=== PATIENT | female | born 1975 | race Caucasian/White ===

== ENCOUNTER → 2017-06-05 | Outpatient (CLI) | payer BC ==
[2017-06-05 13:30] LABS: CHOLESTEROL/HDL RATIO 2.4
== END | disposition home or self-care (01) ==
LOC: C.LABMFLN 08:22
PROVIDERS: ATTEND Family Medicine
DX: Z13.1 Encounter for screening for diabetes mellitus (principal); Z13.220 Encounter for screening for lipoid disorders

== ENCOUNTER → 2017-07-27 | Outpatient (CLI) | payer BC | END | disposition home or self-care (01) | LOC: C.PAPS 10:30 | PROVIDERS: ATTEND Obstetrics & Gynecology | DX: Z01.419 Encounter for gynecological examination (general) (routine) without abnormal findings (principal) ==

== ENCOUNTER → 2017-10-02 | Outpatient (CLI) | payer BC ==
--- NOTE | 2017-10-03 07:50 | MAMMOGRAPHY REPORT ---
THIS REPORT HAS BEEN AMENDED. BILATERAL DIGITAL SCREENING MAMMOGRAM TOMOSYNTHESIS WITH CAD: 10/02/2017 CLINICAL HISTORY: Routine screening. Patient has no complaints. TECHNIQUE: Breast tomosynthesis in addition to standard 2D mammography was performed. Current study was also evaluated with a Computer Aided Detection (CAD) system. COMPARISON: No prior exams were available for comparison. BREAST COMPOSITION: The tissue of both breasts is heterogeneously dense, which may obscure small mas ses. FINDINGS: There is a possible partially circumscribed and obscured 10 mm mass in the upper outer ant erior right breast, best seen on the tomosynthesis images, for which comparison to prior outside mamm ograms would be useful to assess stability. If the outside exams are not obtained in a timely manner , additional targeted ultrasound and possible additional mammographic views are recommended. No other suspicious mass, architectural distortion or cluster of microcalcifications is seen bilatera lly. IMPRESSION: ACR BI-RADS CATEGORY 0: INCOMPLETE EVALUATION: NEED ADDITIONAL IMAGING EVALUATION The possible partially circumscribed and obscured 10 mm mass in the right upper outer quadrant needs comparison to prior outside mammograms to assess stability. If the outside exams are not obtained in a timely manner, additional targeted ultrasound and possible additional mammographic views is recomm ended for further characterization. The patient will be called to schedule an appointment. Approximately 10% of breast cancers are not detected with mammography. A negative mammographic report should not delay biopsy if a clinically suggestive mass is present. Jyo Morrison M.D. ay/:10/02/2017 15:40:36 Acid Regenerator: Kenyatta FREGOSO)(Janee), [facility] letter sent: [facility] 0 BI-RADS Code: ACR BI-RADS Category 0: Incomplete Evaluation: Need Additional Imaging Evaluation AMENDMENT: 10/03/2017 Joy Morrison M.D. A prior outside mammogram dated 02/10/2016 became available for review. The partially circumscribed a nd obscured 10 mm mass in the right upper outer quadrant was not definitely seen on the prior mammogr am and therefore additional targeted ultrasound and possible additional tomosynthesis views are recom mended. Amended BI-RADS: ACR BI-RADS Category 0: Incomplete Evaluation: Need Additional Imaging Evaluation letter sent: [facility]
== END | disposition home or self-care (01) ==
LOC: C.MAMM 14:54
PROVIDERS: ATTEND Family Medicine
DX: Z12.31 Encounter for screening mammogram for malignant neoplasm of breast (principal)

== ENCOUNTER → 2017-10-19 | Outpatient (CLI) | payer BC ==
--- NOTE | 2017-10-19 14:21 | MAMMOGRAPHY REPORT ---
ULTRASOUND OF RIGHT BREAST: 10/19/2017 CLINICAL HISTORY: Callback from screening mammogram for right breast mass. COMPARISON: Comparison is made to exam dated: 10/02/2017 mammogram - [facility]. TECHNIQUE: Real-time targeted ultrasound of the right breast was performed. FINDINGS: Targeted ultrasound was performed of the area of the partially circumscribed 10 mm mass see n within the right upper outer anterior breast on the recent screening mammogram. In the right 9:00 periareolar breast, there is a circumscribed oval 10 x 6 x 7 mm mass. The mass is predominantly anec hoic and therefore cystic but an internal echogenic portion is noted. The mass likely represents a c omplicated cyst, however, a mixed cystic and solid mass is not excluded. This corresponds with the m ammographic mass. Recommend ultrasound-guided core needle biopsy for further evaluation. In the right 9:00 breast, 5 cm from the nipple, a similar appearing hypoechoic and partially anechoic 7 x 4 x 10 mm mass is also seen. Another similar-appearing partially hypoechoic and partially anech oic 5 x 5 x 3 mm mass is also seen within the right 11:00 breast, 3 cm from the nipple. These are pr obably benign and likely also represent complicated cysts/fibrocystic changes. In the right 12:00 pe riareolar region as a anechoic benign simple cyst measuring 7 x 7 x 8 mm. IMPRESSION: ACR BI-RADS CATEGORY 4: SUSPICIOUS - FOLLOW-UP RECOMMENDED 1. Circumscribed 10 mm mass in the right 9:00 periareolar breast on ultrasound. This corresponds wi th the mammographic mass and may represent a complicated cyst although a mixed cystic and solid mass is not excluded. Recommend ultrasound-guided core needle biopsy for further evaluation. 2. Pending benign pathology results, recommend follow-up diagnostic tomosynthesis mammograms and tar geted ultrasound of the right breast in 6 months to confirm stability of other smaller similar-appear ing masses in the right 9 and 11:00 breast which are probably benign and likely represent complicated cysts/fibrocystic changes. A phone call was made to the physician's office to confirm faxed results were received. The patient was verbally notified of the results. She tentatively scheduled the biopsy before leaving the depart ment. Leticia Carrasquillo M.D. /:10/19/2017 11:47:53 Glass Block Installer: Hue FREGOSO)(Janee), [facility] letter sent: Abnormal 4/5 BI-RADS Code: ACR BI-RADS Category 4: Suspicious
== END | disposition home or self-care (01) ==
LOC: C.MAMM 09:13
PROVIDERS: ATTEND Family Medicine
DX: R92.8 Other abnormal and inconclusive findings on diagnostic imaging of breast (principal); N63.10 Unspecified lump in the right breast, unspecified quadrant

== ENCOUNTER → 2017-11-08 | Outpatient (CLI) | payer BC ==
--- NOTE | 2017-11-08 14:13 | Discharge Instructions ---
Discharge Instructions Procedure Procedure Date: November 08, 2017. Reason for visit: Right Mass. Discharge Discharge Date: November 08, 2017. Discharge Diagnosis: status post breast biopsy Instructions Activity Recommendations: Additional Limitations (see below) Return to School/Work: no limitations Recommended Home Diet: No Limitations Provider Instructions: ACTIVITY RECOMMENDATIONS: * No lifting, pushing, pulling or exercising the affected side for three days. RETURN TO SCHOOL/WORK: * You may return to work/school after the procedure, but do not perform any strenuous activities for 24 to 48 hours. MEDICATIONS: * Tylenol (two 325 mg) every four to six hours if needed for mild pain (if not allergic to Tylenol). DIET: * Resume previous diet. SPECIAL CARE INSTRUCTIONS: * Keep biopsy site dry for 24 hours. May shower after 24 hours, but do not soak (bathe) incision. * May remove Tegaderm (plastic patch) tomorrow AFTER showering. * Leave the steri-strips on for one week. Allow the steri-strips to fall off by themselves. If not off after one week, you may remove them. You may place a Bandaid crosswise over the strips, if desired. * Apply ice 10 minutes on and 10 minutes off as needed. * Wear a bra at bedtime to sleep more comfortably for 2-3 days. * Your referring physician should have the results after approximately 5 to 7 business days. * Call for unusual bleeding, fever, drainage, etc or if you have any questions call during normal business hours or after hours call Dr Carrasquillo, . FOLLOW UP VISIT: Follow-up with Referring Physician as scheduled. Shanon Heredia Recommendations: Call your doctor if: * Temperature above 101 degrees * Pain not relieved by pain medicine ordered * There is increased drainage or redness from any incision * You have any unanswered questions or concerns. Your Doctors Instructions noted above were prepared by provider Leticia Carrasquillo. Patient Signature Section: Patient Instructions Signature Page Jessica Damon Patient (or Guardian) Signature/Date: I have read and understand the instructions given to me by my caregivers. Caregiver/RN/Doctor Signature/Date: The above-named patient and/or guardian has received patient instructions on this date. + Original Patient Signature Page (only) stays with chart. Please make copy for patient.
--- NOTE | 2017-11-09 15:18 | MAMMOGRAPHY REPORT ---
ULTRASOUND GUIDED BIOPSY RIGHT BREAST: 11/08/2017 CLINICAL HISTORY: Right 9:00 periareolar breast mass. PATIENT CONSENT: The procedure, risks and benefits were discussed with the patient and informed writt en consent was obtained. A timeout was performed immediately prior to the procedure. PROCEDURE DESCRIPTION: With ultrasound guidance, aseptic technique, and lidocaine as the local anesth etic (1% lidocaine to anesthetize the skin and 1% lidocaine with epinephrine to anesthetize the deepe r tissues), the mass of concern in the right 9:00 periareolar breast was sampled 3 times with a 14-ga uge Achieve biopsy needle. The mass decreased in size with each subsequent pass. Immediately therea fter, with ultrasound guidance, aseptic technique, and lidocaine as the local anesthetic, a metallic localizer clip was placed at the biopsy site. Direct pressure was applied to the site immediately po st procedure and hemostasis was achieved. Postprocedure unilateral mammograms were performed to conf irm placement of the clip in the expected location of the breast mass. Steri-Strips were placed over the site and covered with an OpSite patch. The patient tolerated the procedure without complication . She was given wound care instructions. The specimens were sent to pathology for analysis. COMPARISON: Comparison is made to exams dated: 10/19/2017 ultrasound and 10/02/2017 mammogram - [facility]. IMPRESSION: ULTRASOUND GUIDED BIOPSY Ultrasound-guided core needle biopsy of the right 9:00 periareolar breast mass, with clip placement. The patient will receive pathology results from her referring provider. Pending benign pathology res ults, recommend follow-up diagnostic tomosynthesis mammograms and targeted ultrasound of the right br east in 6 months to confirm stability of other smaller similar-appearing masses in the right 9 and 11 :00 breast. Leticia Carrasquillo M.D. ah/:11/08/2017 14:14:58 Attending Technologist: Leticia ALEMAN(R)(M), [facility] Flight Engineer Instructor: Leticia Carrasquillo MD, [facility]
--- NOTE | 2017-11-09 15:18 | MAMMOGRAPHY REPORT ---
UNILATERAL RIGHT DIGITAL DIAGNOSTIC MAMMOGRAM TOMOSYNTHESIS: 11/08/2017 CLINICAL HISTORY: Status post right breast biopsy. TECHNIQUE: Breast tomosynthesis in addition to standard 2D mammography was performed. Postprocedura l right CC and ML tomosynthesis images were obtained. COMPARISON: Comparison is made to exams dated: 10/19/2017 ultrasound, 10/02/2017 mammogram - [facility], 02/10/2016 mammogram, and 02/10/2016 ultrasound. BREAST COMPOSITION: The tissue of the right breast is heterogeneously dense, which may obscure small masses. FINDINGS: A ribbon shaped biopsy clip is seen at the site of the biopsied mass in the right 9:00 jean paul areolar breast. No significant postbiopsy hematoma is seen. IMPRESSION: POST PROCEDURE IMAGING FOR MARKER PLACEMENT New biopsy marker clip status post right breast biopsy. Pathology results are pending. Pending benig n pathology results, recommend follow-up diagnostic tomosynthesis mammograms and targeted ultrasound of the right breast in 6 months to confirm stability of other smaller similar-appearing masses in the right 9 and 11:00 breast. Approximately 10% of breast cancers are not detected with mammography. A negative mammographic report should not delay biopsy if a clinically suggestive mass is present. Leticia Carrasquillo M.D. ah/:11/08/2017 14:28:00 [place] Layer: Leticia FREGOSO)(Janee), [facility] BI-RADS Code: Post Procedure Imaging For Marker Placement
== END | disposition home or self-care (01) ==
LOC: C.MAMM 13:25
PROVIDERS: ATTEND Family Medicine
DX: N63.10 Unspecified lump in the right breast, unspecified quadrant (principal); N60.11 Diffuse cystic mastopathy of right breast

== ENCOUNTER 2024-12-05 13:43 | Observation (INO) ==
[2024-12-05 14:14] LABS: Basophils # (auto) 0.05 K/uL (0.00-0.20); Basophils % (auto) 0.4 %; Eosinophils # (auto) 0.04 K/uL (0.00-0.50); Eosinophils % (auto) 0.3 %; Hematocrit (blood only) 39.6 % (37.0-47.0); Hemoglobin 13.3 g/dl (12.0-16.0); Immature Granulocytes # (auto) 0.04 K/uL (0.01-0.20); Immature Granulocytes % (auto) 0.3 %; Lymphocytes # (auto) 1.03 K/uL (1.20-3.40); Lymphocytes % (auto) 8.7 %; Mean Corpuscular Hemoglobin 30.4 pg (25.0-34.0); Mean Corpuscular Hgb Conc 33.6 g/dL (32.0-36.0); Mean Corpuscular Volume 90.6 fL (80.0-100.0); Mean Platelet Volume 8.9 fL (9.4-12.4); Monocytes # (auto) 0.91 K/uL (0.11-0.59); Monocytes % (auto) 7.7 %; Neutrophils # (auto) 9.81 K/uL (1.40-6.50); Neutrophils % (auto) 82.6 %; Platelet Count 255 K/uL (130-400); RDW Coefficient of Variation 12.8 % (11.5-14.5); RDW Standard Deviation 42.3 fL (36.4-46.3); Red Blood Count 4.37 M/uL (4.20-5.40); White Blood Count 11.88 K/ul (4.8-10.8)
--- NOTE | 2024-12-05 14:25 | Emergency Department Note ---
Impression & Plan Pulmonary embolism ED Provider Note Provider: Jose Connelly MD CHIEF COMPLAINT: Referred due to abnormal CT, chest discomfort, breathing issues HISTORY OF PRESENT ILLNESS: Patient is a 49-year-old female with distant history of DVT in the right leg in 2002 after breaking her femur requiring surgery presenting here referred from outpatient clinic today due to positive CT scan. Patient had her left knee replaced on November 21 this year. Has been doing well in normal activities wear compression stockings. Has been on low-dose aspirin. Patient states she had stitches removed yesterday and was now using a cane from a walker and is able to walk some but overnight developed in the melanite some pain in the right upper back. Worse with deep breaths and has been breathing shorter because of this. Went to the office today noted be tachycardic and with complaints of recent surgery sent for a CT of the chest. This returned positive for fairly extensive right-sided pulmonary embolism with pulmonary infarct. Patient denies fainting or significant chest discomfort. PAST MEDICAL HISTORY: As noted above MEDICATIONS: Reviewed home medications SOCIAL HISTORY: PHYSICAL EXAM: GENERAL: alert and oriented in no acute distress on stretcher Head: normocephalic and atraumatic EYES: No injection, discharge or icterus. NECK: Trachea midline. ENT: Mucous membranes pink and moist. LUNGS: Airway patent. No retractions. Breath sounds clear HEART: Regular tachycardic rate and rhythm. No chest wall tenderness ABDOMEN: Soft and non-tender, without guarding or rebound. SKIN: Acyanotic, warm, dry, without rashes EXTREMITIES: Patient without significant tenderness of the right lower extremity with some mild tenderness surrounding the left knee. 2+ feeling of the left lower extremity with 1+ swelling of the right lower extremity NEUROLOGICAL: No focal deficits. No aphasia. No facial droop or slurred speech. Normal strength and tone in the lower extremities. Sensation to gross touch normal in the lower extremities ambulatory. EK bpm normal sinus rhythm. No PVC or PAC. No acute ST segment elevation with lead III T wave inversion noted. QTc 444. CONTINUOUS CARDIAC MONITORING: was ordered and showed a heart rate of 90s-110s bpm in normal sinus rhythm to sinus tachycardia Patient's laboratory studies and imaging reviewed. Differential includes Reactive airway disease, pneumonia, pneumothorax, COPD, CHF, infections, cardiac ischemia, pulmonary embolism, musculoskeletal, gastrointestinal, as well as other pathologies. IMPRESSION/MEDICAL DECISION MAKING: PE found on outpatient studies recent postop of left knee surgery likely provoked will obtain ultrasound to look for DVT. Evidence of a left peroneal vein DVT. Troponin blood work EKG obtained. Patient not hypoxic but does have tachycardia. No syncope. Hypercoagulable panel sent although seems like provoked but does have 1 episode in the past peer discussed with the need for anticoagulation and will likely need hematology discussion in the future determine total duration. simplifed PESI score is high risk given the tachycardia she had here in the office upon arrival and as such discussed with her staying for heparinization and transition to oral anticoagulant in the near future. She was agreeable. Hospitalist team was contacted. IV heparin drip was ordered. DIAGNOSIS: Pulmonary embolism, tachycardia, left lower extremity DVT DISPOSITION: Hospitalist will evaluate Patient was agreeable with this plan. Critical Care I have personally spent 34 minutes of critical care time in the direct management of this patient. This includes bedside care, interpretation of diagnostic studies, and testing, discussion with consultants, patient, and family members, and other required patient management activities. These 34 minutes is in excess of all separately billable procedures. Past Med/Surg History Problem List (Updated 12/05/24 @ 16:09 by Jose Connelly M.D.) Pulmonary embolism (Acute) Status post left knee replacement Thickened endometrium Postmenopausal bleeding Ovarian mass Thyroid nodule 2 right thyroid nodule - US 09/2023, repeat in 1 year Rhus dermatitis Gastroesophageal reflux disease Medical History Varicose veins of both lower extremities Hx of gastroesophageal reflux (GERD) controlled, stable per pt Recurrent cold sores several times this year-last flare one week ago with resolution Hx of deep venous thrombosis (~2002) right, 2002, femur fx, previously on coumadin orally for 6 weeks Problem of both ears currently having a pulsing noise in both ears, dr ordered MRI for 10/28/24 at [facility] Hx of thyroid nodule 2 right thyroid nodule - US 09/2024 Surgical History Hx of colonoscopy S/P ORIF (open reduction internal fixation) fracture H/O arthroscopic knee surgery S/P tubal ligation H/O dilation and curettage Family History Denies family history of Ovarian cancer Breast cancer Colorectal cancer Social History Smoking Status: Never smoker Second Hand Exposure: No; Do You Dip or Chew Tobacco: No; Hx Alcohol Use: Yes Alcohol type: beer, wine and hard liquor Hx Substance Use: No Preferred Language: Togolese Communication Ability: Effective Visual Impairment: No Limitations Hearing Ability: Normal Electric Tape Slitter Required: No Beliefs That Will Affect Care: None marital status: Current Living Situation: Spouse current occupational status: employed Feels Safe at Home: Yes Childhood Exposure to Second-Hand Smoke: No Dental Care, Regularly: Yes Physical Activity Frequency: Daily Seatbelt Use: always Sunscreen Use: Yes Assistive Devices: Glasses and Walker Allergies Allergies Allergy/AdvReac Type Severity Reaction Status Date / Time terbinafine Allergy Severe Hives Verified 12/05/24 09:23 Home Meds Home Medications Medication Instructions Recorded Confirmed nitroglycerin 0.1 mg/hr 1 patch topical UD PRN achilles 12/18/22 12/05/24 transdermal 24 hour patch inflammation [id number] carb-vit K 1 tab PO QAM 10/21/24 12/05/24 18 mg iron-400 mcg-500 mg tablet omeprazole 20 mg capsule,delayed 20 mg PO QAM 10/21/24 12/05/24 release turmeric 400 mg capsule 800 mg PO QAM 10/21/24 12/05/24 Previous Rx's Medication Instructions Recorded furosemide 20 mg tablet 20 mg PO DAILY PRN edema #10 tabs 09/10/23 acetaminophen 500 mg tablet 1,000 mg (2 x 500 mg) PO TID pain 11/19/24 (Tylenol Extra Strength) 30 days #180 tabs aspirin 81 mg tablet,delayed 81 mg PO BID 45 days #90 tabs 11/19/24 release (Radha Low Dose Aspirin) ondansetron 4 mg disintegrating 4 mg PO Q8 PRN nausea #20 tabs 11/19/24 tablet oxycodone 5 mg tablet 5 - 10 mg (1 - 2 x 5 mg) PO Q6 PRN 11/19/24 pain #40 tabs Results & Data (ED) Vital Signs Vital Signs - 24 hr 12/05/24 13:46 12/05/24 14:23 12/05/24 15:45 Temperature 36.6 C Temperature Source Temporal Artery Scan Pulse Rate 111 H 101 H Pulse Rate [Apical] 99 H Respiratory Rate 18 22 Respiratory Effort / Characteristics Non-Labored Spontaneous Respiratory Depth Normal Respiratory Pattern Regular Blood Pressure 165/114 H Blood Pressure [Left Arm] 147/99 H Blood Pressure Mean 131 Blood Pressure Mean [Left Arm] 115 Pulse Oximetry 94 94 Oxygen Delivery Method Room Air Room Air Sepsis Recent Fever Within 48 Hours No Sepsis New/Unexplained Change in Mental Status N/A Sepsis Action Taken by Nursing No Action Required Laboratory Data 12/05/24 14:02 12/05/24 14:02 Lab Results 12/05/24 12/05/24 Range/Units 14:02 15:06 WBC 11.88 H (4.8-10.8) K/ul RBC 4.37 (4.20-5.40) M/uL Hgb 13.3 (12.0-16.0) g/dl Hct 39.6 (37.0-47.0) % MCV 90.6 (80.0-100.0) fL MCH 30.4 (25.0-34.0) pg MCHC 33.6 (32.0-36.0) g/dL RDW Std Deviation 42.3 (36.4-46.3) fL RDW Coeff of [place] 12.8 (11.5-14.5) % Plt Count 255 (130-400) K/uL MPV 8.9 L (9.4-12.4) fL Immature Gran % (Auto) 0.3 % Neut % (Auto) 82.6 % Lymph % (Auto) 8.7 % [place] % (Auto) 7.7 % Eos % (Auto) 0.3 % Baso % (Auto) 0.4 % Neut # (Auto) 9.81 H (1.40-6.50) K/uL Lymph # (Auto) 1.03 L (1.20-3.40) K/uL [place] # (Auto) 0.91 H (0.11-0.59) K/uL Eos # (Auto) 0.04 (0.00-0.50) K/uL Baso # (Auto) 0.05 (0.00-0.20) K/uL Immature Gran # (Auto) 0.04 (0.01-0.20) K/uL PT 11.0 (9.0-12.0) Seconds INR 1.0 (0.9-1.1) APTT 26 (21-31) Seconds PTT Ratio 1.0 Sodium 135 L (136-145) mmol/L Potassium 4.2 (3.5-5.1) mmol/L Chloride 102 (98-107) mmol/L Carbon Dioxide 26 (21-32) mmol/L Anion Gap 7 (3-11) BUN 16 (6-23) mg/dl Creatinine 0.72 (0.6-1.2) mg/dl Est Cr Clr Drug Dosing Not Reportable eGFR 101.17 BUN/Creatinine Ratio 22.2 H (10-20) Glucose 107 H (70-99(Fasting)) mg/dl Calcium 9.0 (8.6-10.3) mg/dl Total Bilirubin 0.8 (0.2-1.0) mg/dl AST 26 (13-39) U/L ALT 36 (7-52) U/L Alkaline Phosphatase 122 H (34-104) U/L Troponin I High Sens < 2.3 (0-14) pg/ml B-Natriuretic Peptide 14 (0-100) pg/ml Total Protein 7.4 (6.0-8.3) gm/dl Albumin 4.4 (3.4-5.0) gm/dl Globulin 3.0 (2.5-4.0) gm/dl Albumin/Globulin Ratio 1.5 (0.9-2) Administered Medications Heparin Sodium/Dextrose (Heparin 41916 Unit/500 Ml D5w) 25,000 units in 500 mls @ 0.02 mls/hr IV .Q24H [facility]; Protocol Stop: 01/04/25 15:44 Last Admin: 12/05/24 16:27 Dose: 1,250 units/hr, 25 mls/hr Documented By: SHANTI Co-signed By: CEF Discontinued Medications Heparin Sodium (Porcine) (Heparin Sod (Porcine) 1000 Unit/Ml) 1 units IV NOW ONE Stop: 12/05/24 15:33 Last Admin: 12/05/24 16:26 Dose: 5,000 units Documented By: SHANTI Co-signed By: TERA Miscellaneous (Patient's Height &/Or Weight Needed) 1 each N/A Q2H STA Stop: 12/05/24 15:22 Last Admin: 12/05/24 15:56 Dose: 1 each Documented By: SHANTI Imaging Data Radiologist's Impression: Venous Doppler Study 12/05/24 14:05 BILATERAL LOWER EXTREMITY VENOUS DOPPLER CLINICAL HISTORY: swelling, PE, recent surgery COMPARISON STUDY: No previous studies for comparison. TECHNIQUE: Sonography of the deep venous system of the bilateral lower extremities was performed. Compression and augmentation were evaluated. FINDINGS: There is no deep venous thrombus within the right lower extremity. Deep venous thrombus within the left popliteal vein is noted. No additional sites of deep venous thrombus within the left lower extremity are present IMPRESSION: 1. Positive study for deep venous thrombus within the left popliteal vein. 2. No additional sites of deep venous thrombus within the lower extremities. ACT 112: Negative or not required by law. Electronically signed by: Pb Sher M.D. 12/05/2024 3:19 PM Discharge Plan Visit Data Chief Complaint: Referred by Doctor Stated Complaint: BLOOD CLOT IN LUNG ED Provider: Jose Connelly Discharge Problem: Pulmonary embolism Patient Disposition: Being Evaluated by Hospitalist Condition: Fair Forms Stand Alone Forms: [facility] [employer] Prescriptions Prescriptions: No Action oxycodone 5 mg tablet 5 - 10 mg PO Q6 PRN (Reason: pain) Qty: 40 0RF Rx Instructions: Take as needed for pain ondansetron 4 mg tablet,disintegrating 4 mg PO Q8 PRN (Reason: nausea) Qty: 20 1RF Rx Instructions: Take as needed for nausea acetaminophen [Tylenol Extra Strength] 500 mg tablet 1,000 mg PO TID 30 Days Qty: 180 0RF Rx Instructions: Take 3 times per day to lessen pain. aspirin [Radha Low Dose Aspirin] 81 mg tablet,delayed release (DR/EC) 81 mg PO BID 45 Days Qty: 90 0RF Rx Instructions: Take to prevent blood clots. nitroglycerin 0.1 mg/hr patch 24 hour 1 patch topical UD PRN (Reason: achilles inflammation) furosemide 20 mg tablet 20 mg PO DAILY PRN (Reason: edema) Qty: 10 0RF [id number]-Ca carb-vit K 18 mg iron-400 mcg-500 mg Tablet 1 tab PO QAM Rx Instructions: last taking around november 19 or turmeric 400 mg Capsule 800 mg PO QAM Patient Comments: gummies Rx Instructions: hasnt used since surgery omeprazole 20 mg capsule,delayed release(DR/EC) 20 mg PO QAM Referrals Referrals: Meka Hernandez DO [Primary Care Provider] - Discharge Problem: Pulmonary embolism Qualifiers: Pulmonary embolism type: unspecified Chronicity: acute Acute cor pulmonale presence: with acute cor pulmonale Qualified Code(s): I26.09 - Other pulmonary embolism with acute cor pulmonale
[2024-12-05 14:32] LABS: Alanine Aminotransferase 36 U/L (7-52); Albumin Globulin Ratio 1.5 (0.9-2); Albumin Level 4.4 gm/dl (3.4-5.0); Alkaline Phosphatase 122 U/L (34-104); Anion Gap 7 (3-11); Aspartate Aminotransferase 26 U/L (13-39); BUN Creatinine Ratio 22.2 (10-20); Bilirubin,Total 0.8 mg/dl (0.2-1.0); Blood Urea Nitrogen 16 mg/dl (6-23); Carbon Dioxide 26 mmol/L (21-32); Chloride 102 mmol/L (98-107); Glucose 107 mg/dl (70-99(Fasting)); Potassium 4.2 mmol/L (3.5-5.1); Sodium 135 mmol/L (136-145); Total Protein 7.4 gm/dl (6.0-8.3)
[2024-12-05 14:38] LABS: Troponin I High Sensitivity < 2.3 pg/ml (0-14)
[2024-12-05 14:51] LABS: Partial Thromboplastin Time 26 Seconds (21-31)
--- NOTE | 2024-12-05 15:21 | Ultrasound Report ---
BILATERAL LOWER EXTREMITY VENOUS DOPPLER CLINICAL HISTORY: swelling, PE, recent surgery COMPARISON STUDY: No previous studies for comparison. TECHNIQUE: Sonography of the deep venous system of the bilateral lower extremities was performed. Co mpression and augmentation were evaluated. FINDINGS: There is no deep venous thrombus within the right lower extremity. Deep venous thrombus wit hin the left popliteal vein is noted. No additional sites of deep venous thrombus within the left low er extremity are present IMPRESSION: 1. Positive study for deep venous thrombus within the left popliteal vein. 2. No additional sites of deep venous thrombus within the lower extremities. ACT 112: Negative or not required by law. Electronically signed by: Pb Sher M.D. 12/05/2024 3:19 PM
[2024-12-05] MEDS: Heparin IV Adult Wt-Based Standard w/ INITIAL Bolus Protocol IV STA (15:36)
[2024-12-05] MEDS: Patient's HEIGHT &/or WEIGHT Needed STA (15:56)
[2024-12-05] MEDS: HEPARIN SOD (PORCINE) 1000 UNIT/ML IV ONE (16:26)
[2024-12-05] MEDS: HEPARIN 25000 UNIT/500 ML D5W 25,000 UNITS/500 ML BAG IV SCH (16:27)
--- NOTE | 2024-12-05 17:19 | Pulmonary Consultation ---
Date of Consultation December 05, 2024 Assessment & Plan (1) Acute deep vein thrombosis of left popliteal vein: (2) Pulmonary embolism: Acute cor pulmonale presence: with acute cor pulmonale C hronicity: acute Pulmonary embolism type: unspecified Qualified Code(s): I 26.09 - Other pulmonary embolism with acute cor pulmonale (3) Obesity: Plan CTA chest 12/05/2024 personally reviewed: Patchy groundglass opacity appreciated on the periphery in the right upper lobe likely infarct Acute pulmonary emboli in the right pulmonary artery Dependent atelectasis bilateral lower lobes Patchy scarring appreciated in the right lower lobe next to spinal callus --Acute pulmonary emboli with probable wedge-shaped infarct BNP 14, troponin Negative sPESI 0 Would consider this to be a provoked event given left knee replacement 2 weeks ago Patient did have history of DVT in the right lower extremity which was also provoked from surgery at that time. Given that the patient has second episode of DVT and now a PE, BMI of 38.7 and sedentary work lifestyle; I would recommend therapeutic anticoagulation for 3-6 months followed by low-dose anticoagulation lifelong It is reasonable to do hypercoagulable workup as well -- Acute DVT 12/05/2024 left popliteal vein History of DVT back in 2002 s/p femoral fracture --Probable ROBINA Recommend outpatient polysomnography Plan: Start the patient on heparin drip No indication for EKOS or systemic thrombolytic Does seem to have a wedge-shaped infarct, recommend incentive spirometry with pain management Given that the patient has second episode of DVT and now a PE, BMI of 38.7 and sedentary work lifestyle; I would recommend therapeutic anticoagulation for 3-6 months followed by low-dose anticoagulation lifelong Case was discussed with primary team I spent more than 75 minutes looking in the chart, images, discussing the plan of care with the patient, RN as well as primary team Please note the above document was generated using voice recognition software. It may contain grammatical, syntax or spelling errors.Any formal questions or concerns about the content, text or information contained within the body of this dictation should be directly addressed to the provider for clarification. History of Present Illness History of Present Illness 49-year-old female admitted to the hospital for back pain and shortness of breath Past medical history: GERD Dr. Palacio was in the room during the time of interrogation on examination along with patient's Patient was in no acute distress. Her heart rate was in the low 100s. Saturation was 93-94% on room air. Respiratory rate was in the mid teens. Patient says that she woke up in the middle of the night with complaints of sharp back pain mostly located on the right side Nonradiating She also complained of shortness of breath at the same time No hemoptysis Denied any cough No fever or chills No dysuria, no diarrhea No dizziness, no lightheadedness No nausea or vomiting Patient did have left knee replacement approximately 2 weeks ago and she was taking only aspirin for it. She had just started physical therapy. 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 Allergies Allergy/AdvReac Type Severity Reaction Status Date / Time terbinafine Allergy Severe Hives Verified 12/05/24 09:23 Home Medications Medication Instructions Recorded Confirmed Type nitroglycerin 0.1 mg/hr 1 patch topical UD PRN achilles 12/18/22 12/05/24 History transdermal 24 hour patch inflammation furosemide 20 mg tablet 20 mg PO DAILY PRN edema #10 tabs 09/10/23 12/05/24 Rx [id number]-FA-Ca carb-vit K 1 tab PO QAM 10/21/24 12/05/24 History 18 mg iron-400 mcg-500 mg tablet omeprazole 20 mg capsule,delayed 20 mg PO QAM 10/21/24 12/05/24 History release turmeric 400 mg capsule 800 mg PO QAM 10/21/24 12/05/24 History acetaminophen 500 mg tablet 1,000 mg (2 x 500 mg) PO TID pain 11/19/24 12/05/24 Rx (Tylenol Extra Strength) 30 days #180 tabs aspirin 81 mg tablet,delayed 81 mg PO BID 45 days #90 tabs 11/19/24 12/05/24 Rx release (Radha Low Dose Aspirin) ondansetron 4 mg disintegrating 4 mg PO Q8 PRN nausea #20 tabs 11/19/24 12/05/24 Rx tablet oxycodone 5 mg tablet 5 - 10 mg (1 - 2 x 5 mg) PO Q6 PRN 11/19/24 12/05/24 Rx pain #40 tabs Patient History Medical History Encounter for pre-operative examination Left knee DJD Varicose veins of both lower extremities Hx of gastroesophageal reflux (GERD) controlled, stable per pt Recurrent cold sores several times this year-last flare one week ago with resolution Hx of deep venous thrombosis (~2002) right, 2002, femur fx, previously on coumadin orally for 6 weeks Problem of both ears currently having a pulsing noise in both ears, ordered MRI for 10/28/24 at [facility] Hx of thyroid nodule 2 right thyroid nodule - US 09/2024 Surgical History Hx of colonoscopy 07/2024 S/P ORIF (open reduction internal fixation) fracture right femur>hardware intact H/O arthroscopic knee surgery left S/P tubal ligation H/O dilation and curettage Family History (Updated 12/05/24 @ 18:21 by Jaleel Palacio MD, PhD) Father No problems noted. Mother No problems noted. Denies family history of Ovarian cancer Breast cancer Colorectal cancer Social History Smoking Status: Never smoker Second Hand Exposure: No; Do You Dip or Chew Tobacco: No; Hx Alcohol Use: Yes Alcohol type: beer, wine and hard liquor Hx Substance Use: No Preferred Language: [place] Communication Ability: Effective Visual Impairment: No Limitations Hearing Ability: Normal Beading Sawyer Required: No Beliefs That Will Affect Care: None marital status: Current Living Situation: Spouse current occupational status: employed Other Information That Helps Us Care for You: No Feels Safe at Home: Yes Safety Concerns: Feels Safe At This Time Childhood Exposure to Second-Hand Smoke: No Dental Care, Regularly: Yes Physical Activity Frequency: Daily Seatbelt Use: always Sunscreen Use: Yes Assistive Devices: Cane and Walker Review of Systems 2 Review of Systems: All systems reviewed & are unremarkable except as noted in HPI & below Physical Exam 2 Physical Exam: Constitutional: No acute distress HEENT: EOMI, PERRLA Respiratory system: Decreased air bilaterally, no wheeze, no rhonchi, positive crackles bilaterally CVS: S1-S2 positive, no murmurs or gallops Abdomen: Soft, nontender, nondistended, positive bowel sounds x4 Extremities: +2 pulses bilaterally radialis/ dorsalis pedis, no cyanosis, +1 pitting edema bilateral lower extremity Neuro: Awake alert oriented x3 Psych: Normal mood and affect G/U: No [place] Skin: no rashes, warm and dry Lymphatic: no cervical or axillary lymphadenopathy Results & Data Results & Data Vital Signs (Past 12 Hours) Vital Signs Temp Pulse Pulse Resp BP BP Pulse Ox 12/05/24 15:45 99 H 22 147/99 H 94 12/05/24 14:23 101 H 12/05/24 13:46 36.6 C 111 H 18 165/114 H 94 O2 Del Method 12/05/24 15:45 Room Air 12/05/24 14:23 12/05/24 13:46 Room Air Laboratory Results 12/05/24 14:02 12/05/24 14:02 PG Care Time/CCT Total # of Minutes Spent Total Time Spent with Patient: Total time spent is greater than 50% in coordination of care (as documented) at patient's floor/unit and/or counseling patient: Coding Level of Care Code 30611 INT INP/OBS CARE 3/75MIN Diagnoses Acute deep vein thrombosis of left popliteal vein I82.432 Pulmonary embolism I26.09 Acute cor pulmonale presence: with acute cor pulmonale Chronicity: acute Pulmonary embolism type: unspecified Obesity E66.9
[2024-12-05] MEDS ORDERED: oxyCODONE HCL IR 5 MG TAB (IMMEDIATE RELEASE) PO PRN ×2 (18:21→18:50)
[2024-12-05] MEDS ORDERED: NITROGLYCERIN 0.1 MG/HR PATCH TD PRN (18:21)
[2024-12-05] MEDS ORDERED: FUROSEMIDE 20 MG TAB PO PRN (18:21)
--- NOTE | 2024-12-05 18:21 | History & Physical Report ---
Date of Service December 05, 2024 Assessment & Plan (1) Pulmonary embolism: Plan: See Plan below for details on Assessment & Plan for acute right PE. (2) Acute deep vein thrombosis of left popliteal vein: Plan: ee Plan below for details on Assessment & Plan for acute left popliteal DVT. (3) Leukocytosis: Plan: ee Plan below for details on Assessment & Plan for acute leukocytosis. (4) Alkaline phosphatase elevation: Plan: ee Plan below for details on Assessment & Plan for nominal ALK PHOS elevation. Plan 49 years old female with PMH of FULL CODE @ home, obesity with BMI 39.2 (height 157.5 cm/ weight 97.1 kg), bilateral pulsatile tinnitus, GERD on omeprazole 20mg PO qam, 7 x 8 x 5 mm mixed cystic and solid nodule of mid-pole, stable in size, and a few additional subcentimeter mixed cystic and solid nodules in the right thyroid lobe also appear unchanged compared to 09/21/2023 thyroid U/S (as reported on 10/03/2024 thyroid U/S), and RLE DVT, no PE (2002) on coumadin for 6 months, and most likely provoked by traumatic R femoral fracture (2002) sustained after 1,000 pounds of drywall (10 sheets of drywall propped up on patient's home porch) fell onto patient's RLE and caused an acute R femoral spiral fracture that was repaired @ [facility], who underwent elective left total knee replacement (11/21/2024, 1:24pm, [facility] Orthopedic Surgeon Dr. Sulaiman Urena), then placed on ASA 81mg PO bid for DVT prophylaxis, who reports: "I woke up this morning (12/05/2024, 1:00am) with this sharp pain in the right side of my upper back; it got worse when I breathed in, but not out. I did not fall down or hit anything in my right back. I called my PCP Dr. Meka Hernandez and she sent me to the ER to get a CAT scan of my chest. The ER doc said that I have a blood clot in my right lung." Patient was subsequently placed in OBSERVATION on the hospitalist service @ [facility] on 12/05/2024 with the following diagnoses: 1. Acute PE in the distal right pulmonary artery which extend into the lobar and segmental branches of the right lung. 2. Acute left popliteal DVT. 3. Acute leukocytosis with WBC 11.88, N83 L9 M8 (12/05/2024, 2:02pm). 4. Nominal elevation in ALK PHOS 122 U/L (12/05/2024, 2:02pm). To address #1 and #2, patient was started on heparin bolus of 5,000 units IV x 1 dose (12/05/2024, 4:26pm), followed by heparin infusion @ 1,250 units/hr (12/05/2024, 4:27pm) in [facility] ER bed #B12B. Patient will then transition to eliquis 10mg PO bid x 7 days (starting on 12/06/2024 am) at [facility] Telemetry floor, followed by eliquis 5mg PO bid x 83 days (starting on 12/13/2024 am) at home. To this end, I have solicited formal Case Management Service evaluation in the 12/06/2024 am, to determine if patient will have any co-pay for eliquis 10mg PO bid x 7 days (starting on 12/06/2024 am) at [facility] Telemetry floor, followed by eliquis 5mg PO bid x 83 days (starting on 12/13/2024 am) at home. In addition, I solicited formal Pulmonology Service evaluation with Dr. Chiquita Ortega to optimize management of acute PE and acute left popliteal DVT, both of which appear to have been provoked by patient's recent elective left total knee replacement (11/21/2024, 1:24pm, [facility] Orthopedic Surgeon Dr. Sulaiman Urena). Moreover, patient's past medical history of RLE DVT, no PE (2002) on coumadin for 6 months, was most likely provoked by traumatic R femoral fracture (2002) sustained after 1,000 pounds of drywall (10 sheets of drywall propped up on patient's home porch) fell onto patient's RLE and caused an acute R femoral spiral fracture that was repaired @ [facility]. 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 To address #3, patient is being observed without further evaluation as acute leukocytosis is most probably due to non-specific lymphocyte demargination caused by acute right PE and acute left popliteal DVT. To address #4, patient is being observed without further evaluation as nominal elevation in ALK PHOS is most probably due to ALK PHOS release from pulmonary infarction, and which may actually present in this patient as noted by "5.2 x 2.3 cm right upper lobe subpleural opacity suggestive of a pulmonary infarct" (as reported on 12/05/2024, 10:40am CTA chest). History of Present Illness Chief Complaint: "I woke up this morning (12/05/2024, 1:00am) with this sharp pain in the right side of my upper back; it got worse when I breathed in, but not out. I did not fall down or hit anything in my right back. I called my PCP Dr. Meka Hernandez and she sent me to the ER to get a CAT scan of my chest. The ER doc said that I have a blood clot in my right lung." Primary Care Provider: Meka Hernandez, 49 years old female with PMH of FULL CODE @ home, obesity with BMI 39.2 (height 157.5 cm/ weight 97.1 kg), bilateral pulsatile tinnitus, GERD on omeprazole 20mg PO qam, 7 x 8 x 5 mm mixed cystic and solid nodule of mid-pole, stable in size, and a few additional subcentimeter mixed cystic and solid nodu les in the right thyroid lobe also appear unchanged compared to 09/21/2023 thyroid U/S (as reported on 10/03/2024 thyroid U/S), and RLE DVT, no PE (2002) on coumadin for 6 months, and most likely provoked by traumatic R femoral fracture (2002) sustained after 1,000 pounds of drywall (10 sheets of drywall propped up on patient's home porch) fell onto patient's RLE and caused an acute R femoral spiral fracture that was repaired @ [facility], who underwent elective left total knee replacement (11/21/2024, 1:24pm, [facility] Orthopedic Surgeon Dr. Sulaiman Urena), then placed on ASA 81mg PO bid for DVT prophylaxis, who reports: "I woke up this morning (12/05/2024, 1:00am) with this sharp pain in the right side of my upper back; it got worse when I breathed in, but not out. I did not fall down or hit anything in my right back. I called my PCP Dr. Meka Hernandez and she sent me to the ER to get a CAT scan of my chest. The ER doc said that I have a blood clot in my right lung." Patient denies antecedent/coincident fevers, chills, diaphoresis, cough, wheeze, sore throat, hemoptysis, palpitations, nausea, vomiting, diarrhea, abdominal pain, pelvic pain, hematemesis, hematochezia, melena, hematuria, dysuria, frequency, urgency, headaches, dizziness, lightheadedness, visual changes, hearing changes, weakness, falls, syncope, trauma, travel history, sick contacts, or food/drug ingestions novel or new. All other review of systems are reported as negative/normal by the patient on observation date 12/05/2024. In [facility] ER bed #B12B, patient was afebrile @ 36.8 degrees Celsius, HR 123, RR 20, O2 sat 96% on room air, and BP 131/90 (, 9:27am). Exam was noted for a clear and non-tender chest and back with no obvious ecchymosis or hematoma. Labs in [facility] ER bed #B12B included: WBC 11.88, N83 L9 M8, Hb 13.3, MCV 90.6, PRISON 33.6, platelet 255 (12/05/2024, 2:02pm). INR 1.0 (12/05/2024, 2:02pm). Protein C/S, antithrombin III, Factor V Leiden mutation, prothrombin, homocysteine (12/05/2024, 2:02pm). Na 135, K 4.2, CO2 26, BUN 16, creatinine 0.72, glucose 107, Ca 9.0, AST 26, ALT 36, ALK PHOS 122, TBili 0.8 (12/05/2024, 2:02pm). Troponin-I #1 < 2.3 pg/mL (12/05/2024, 2:02pm). BNP 14 pg/mL (12/05/2024, 2:02pm). Additional testing in [facility] ER bed #B12B included: CTA chest (12/05/2024, 10:40am): 1. Extensive right-sided pulmonary emboli. Specifically, there are near occlusive emboli within the distal right pulmonary artery which extend into the lobar and segmental branches of the right lung. 5.2 x 2.3 cm right upper lobe subpleural opacity suggestive of a pulmonary infarct. No CT evidence for right heart strain. Findings will be called/faxed to ordering provider at time of dictation. 2. Subpleural opacities within the superior segment of the right lower lobe which favor atelectasis or scarring. An additional smaller pulmonary infarct could appear similar but is considered less likely. A chest CT in 3 months to ensure stability/resolution is recommended to exclude the less likely possibility of a pulmonary lesion. 3. Left lung opacities suggestive of atelectasis. Thoracic spine x-ray (12/05/2024, 12:16pm): 1. No fracture seen. Bilateral lower extremity venous doppler (12/05/2024, 2:05pm): 1. Positive study for deep venous thrombus within the left popliteal vein. 2. No additional sites of deep venous thrombus within the lower extremities. Patient was subsequently placed in OBSERVATION on the hospitalist service @ [facility] on 12/05/2024 with the following diagnoses: 1. Acute PE in the distal right pulmonary artery which extend into the lobar and segmental branches of the right lung. 2. Acute left popliteal DVT. 3. Acute leukocytosis with WBC 11.88, N83 L9 M8 (12/05/2024, 2:02pm). 4. Nominal elevation in ALK PHOS 122 U/L (12/05/2024, 2:02pm). To address #1 and #2, patient was started on heparin bolus of 5,000 units IV x 1 dose (12/05/2024, 4:26pm), followed by heparin infusion @ 1,250 units/hr (12/05/2024, 4:27pm) in [facility] ER bed #B12B. Patient will then transition to eliquis 10mg PO bid x 7 days (starting on 12/06/2024 am) at [facility] Telemetry floor, followed by eliquis 5mg PO bid x 83 days (starting on 12/13/2024 am) at home. To this end, I have solicited formal Case Management Service evaluation in the 12/06/2024 am, to determine if patient will have any co-pay for eliquis 10mg PO bid x 7 days (starting on 12/06/2024 am) at [facility] Telemetry floor, followed by eliquis 5mg PO bid x 83 days (starting on 12/13/2024 am) at home. In addition, I solicited formal Pulmonology Service evaluation with Dr. Chiquita Ortega to optimize management of acute PE and acute left popliteal DVT, both of which appear to have been provoked by patient's recent elective left total knee replacement (11/21/2024, 1:24pm, [facility] Orthopedic Surgeon Dr. Sulaiman Urena). Moreover, patient's past medical history of RLE DVT, no PE (2002) on coumadin for 6 months, was most likely provoked by traumatic R femoral fracture (2002) sustained after 1,000 pounds of drywall (10 sheets of drywall propped up on patient's home porch) fell onto patient's RLE and caused an acute R femoral spiral fracture that was repaired @ [facility]. 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 To address #3, patient is being observed without further evaluation as acute leukocytosis is most probably due to non-specific lymphocyte demargination caused by acute right PE and acute left popliteal DVT. To address #4, patient is being observed without further evaluation as nominal elevation in ALK PHOS is most probably due to ALK PHOS release from pulmonary infarction, and which may actually present in this patient as noted by "5.2 x 2.3 cm right upper lobe subpleural opacity suggestive of a pulmonary infarct" (as reported on 12/05/2024, 10:40am CTA chest). Allergies Allergy/AdvReac Type Severity Reaction Status Date / Time terbinafine Allergy Severe Hives Verified 12/05/24 09:23 Home Medications Medication Instructions Recorded Confirmed Type nitroglycerin 0.1 mg/hr 1 patch topical UD PRN achilles 12/18/22 12/05/24 History transdermal 24 hour patch inflammation furosemide 20 mg tablet 20 mg PO DAILY PRN edema #10 tabs 09/10/23 12/05/24 Rx gkbykizx-oiv-tuvz-FA-Ca carb-vit K 1 tab PO QAM 10/21/24 12/05/24 History 18 mg iron-400 mcg-500 mg tablet omeprazole 20 mg capsule,delayed 20 mg PO QAM 10/21/24 12/05/24 History release turmeric 400 mg capsule 800 mg PO QAM 10/21/24 12/05/24 History acetaminophen 500 mg tablet 1,000 mg (2 x 500 mg) PO TID pain 11/19/24 12/05/24 Rx (Tylenol Extra Strength) 30 days #180 tabs aspirin 81 mg tablet,delayed 81 mg PO BID 45 days #90 tabs 11/19/24 12/05/24 Rx release (Radha Low Dose Aspirin) ondansetron 4 mg disintegrating 4 mg PO Q8 PRN nausea #20 tabs 11/19/24 12/05/24 Rx tablet oxycodone 5 mg tablet 5 - 10 mg (1 - 2 x 5 mg) PO Q6 PRN 11/19/24 12/05/24 Rx pain #40 tabs Past Med/Surg History Problem List (Updated 12/05/24 @ 18:24 by Jaleel Palacio MD, PhD) Alkaline phosphatase elevation Leukocytosis Acute deep vein thrombosis of left popliteal vein Pulmonary embolism (Acute) Status post left knee replacement Thickened endometrium Postmenopausal bleeding Ovarian mass Thyroid nodule 2 right thyroid nodule - US 09/2023, repeat in 1 year Rhus dermatitis Gastroesophageal reflux disease Medical History Encounter for pre-operative examination Left knee DJD Varicose veins of both lower extremities Hx of gastroesophageal reflux (GERD) controlled, stable per pt Recurrent cold sores several times this year-last flare one week ago with resolution Hx of deep venous thrombosis (~2002) right, 2002, femur fx, previously on coumadin orally for 6 weeks Problem of both ears currently having a pulsing noise in both ears, dr ordered MRI for 10/28/24 at [facility] Hx of thyroid nodule 2 right thyroid nodule - US 09/2024 Surgical History Hx of colonoscopy 07/2024 S/P ORIF (open reduction internal fixation) fracture right femur>hardware intact H/O arthroscopic knee surgery left S/P tubal ligation H/O dilation and curettage Family History Father No problems noted. Mother No problems noted. Denies family history of Ovarian cancer Breast cancer Colorectal cancer Social History Smoking Status: Never smoker Second Hand Exposure: No; Do You Dip or Chew Tobacco: No; Hx Alcohol Use: Yes Alcohol type: beer, wine and hard liquor Hx Substance Use: No Preferred Language: Indonesian Communication Ability: Effective Visual Impairment: No Limitations Hearing Ability: Normal Anodic Treater Required: No Beliefs That Will Affect Care: None marital status: Current Living Situation: Spouse current occupational status: employed Feels Safe at Home: Yes Childhood Exposure to Second-Hand Smoke: No Dental Care, Regularly: Yes Physical Activity Frequency: Daily Seatbelt Use: always Sunscreen Use: Yes Assistive Devices: Glasses and Walker Review of Systems Constitutional: As above in the History of Present Illness. Physical Exam Constitutional: General: Comfortable, coherent, cooperative. Wide awake and alert. Not confused, lethargic, or obtunded. Patient speaks in complete, fluent, and articulate sentences without pause, interruption, cough, or wheeze. HEENT: NC/AT. EOMI, PERRL. No nystagmus, gaze paresis, anisocoria, miosis, m ydriasis, hyphema, chemosis, scleral icterus, conjunctivitis, or pterygium. No otorrhea, no rhinorrhea. No pharyngeal discharge or erythema. Neck: Supple, no stridor, bruit, goiter, or hepatojugular reflux. Jugular venous pressure is estimated to be 8 cm above the sternal angle of Yan, which is typically 5 cm above the level of the right atrium. Hence, there is no jugular venous distention noted on 12/05/2024. Lymphatics: No pre-post auricular, anterior/posterior cervical, supraclavicular/infraclavicular, axillary, epitrochlear, or inguinal adenopathy. Chest: Symmetric rise and fall with respirations. Non-tender to palpation. Heart: RRR, S1 and S2 noted. No S3 or S4 summation gallop noted. No tripartite friction rub. Grade II/ early systolic murmur @ LLSB without radiation to the carotids, axilla, or back, and which remains invariant in regards to the respiratory cycle. Lungs: Clear to auscultation and percussion. No audible expiratory wheeze, egophony, pectoriloquy, increase in tactile fremitus, or flatness/dullness to percussion at the bases. Abdomen: Soft, non-tender, non-distended. No rebound, guarding, Villa's sign, or organomegaly. Bowel sounds auscultated in all 4 quadrants. Extremities: No clubbing, cyanosis, or edema. 2+ pedal pulses bilaterally. Skin: Moist mucous membranes. No exanthem or enanthem or decubitus ulcer. Neurology: Alert and oriented in regards to person, place, time, and situation. DTR+ and symmetric. 5/5 motor strength in all 4 extremities, both proximally and distally. No myoclonus, tremors, or tics. Urology: No carrion catheter. No urethral discharge. Psychiatry: Appropriate affect. Smiles occasionally. No homicidal/suicidal ideation. Results & Data Results & Data Vital Signs (Past 12 Hours) Vital Signs Temp Pulse Pulse Resp BP BP Pulse Ox 12/05/24 17:32 106 H 24 172/111 H 94 12/05/24 15:45 99 H 22 147/99 H 94 12/05/24 14:23 101 H 12/05/24 13:46 36.6 C 111 H 18 165/114 H 94 O2 Del Method 12/05/24 17:32 Room Air 12/05/24 15:45 Room Air 12/05/24 14:23 12/05/24 13:46 Room Air Laboratory Results As above in the History of Present Illness. Code Status & VTE Plan VTE Prophylaxis Plan VTE Prophylaxis will be ordered: Yes PG Care Time/CCT Total # of Minutes Spent Total Time Spent with Patient: Total time spent is greater than 50% in coordination of care (as documented) at patient's floor/unit and/or counseling patient: Coding Level of Care Code 07875 INT INP/OBS CARE 2/55MIN Diagnoses Pulmonary embolism I26.09 Acute cor pulmonale presence: with acute cor pulmonale Chronicity: acute Pulmonary embolism type: unspecified Acute deep vein thrombosis of left popliteal vein I82.432 Leukocytosis D72.829 Alkaline phosphatase elevation R74.8 (1) Pulmonary embolism Acute cor pulmonale presence: with acute cor pulmonale Chronicity: acute Pulmonary embolism type: unspecified Qualified Code(s): I26.09 - Other pulmonary embolism with acute cor pulmonale
[2024-12-05] MEDS: oxyCODONE HCL IR 5 MG TAB (IMMEDIATE RELEASE) PO PRN (19:41)
[2024-12-05] MEDS: ASPIRIN 81 MG ECTAB PO SCH (21:22)
[2024-12-05] MEDS: ACETAMINOPHEN 500 MG TAB PO SCH (21:22)
[2024-12-06 00:16] LABS: ANTI-Xa, UFH(UnfractionatedHep 0.64 IU/ml (0.3-0.7)
[2024-12-06 07:14] LABS: ANTI-Xa, UFH(UnfractionatedHep 0.69 IU/ml (0.3-0.7)
--- NOTE | 2024-12-06 08:38 | Pulmonology Progress Note ---
Date of Service December 06, 2024 Assessment & Plan (1) Acute deep vein thrombosis of left popliteal vein: (2) Pulmonary embolism: Acute cor pulmonale presence: with acute cor pulmonale C hronicity: acute Pulmonary embolism type: unspecified Qualified Code(s): I 26.09 - Other pulmonary embolism with acute cor pulmonale (3) Obesity: Plan CTA chest 12/05/2024 personally reviewed: Patchy groundglass opacity appreciated on the periphery in the right upper lobe likely infarct Acute pulmonary emboli in the right pulmonary artery Dependent atelectasis bilateral lower lobes Patchy scarring appreciated in the right lower lobe next to spinal callus --Acute pulmonary emboli with probable wedge-shaped infarct BNP 14, troponin Negative sPESI 0 Would consider this to be a provoked event given left knee replacement 2 weeks ago Patient did have history of DVT in the right lower extremity which was also provoked from surgery at that time. Given that the patient has second episode of DVT and now a PE, BMI of 38.7 and sedentary work lifestyle; I would recommend therapeutic anticoagulation for 3-6 months followed by low-dose anticoagulation lifelong It is reasonable to do hypercoagulable workup as well -- Acute DVT 12/05/2024 left popliteal vein History of DVT back in 2002 s/p femoral fracture --Probable ROBINA Recommend outpatient polysomnography Plan: No indication for EKOS or systemic thrombolytic Can transition heparin to DOACs within the next 24 hours Continue with incentive spirometry with pain management Given that the patient has second episode of DVT and now a PE, BMI of 38.7 and sedentary work lifestyle; I would recommend therapeutic anticoagulation for 3-6 months followed by low-dose anticoagulation lifelong Case was discussed with primary team Please note the above document was generated using voice recognition software. It may contain grammatical, syntax or spelling errors.Any formal questions or concerns about the content, text or information contained within the body of this dictation should be directly addressed to the provider for clarification. Admission and Anticipated Discharge Date Admission Date: December 05, 2024 Subjective Patient seen and examined at bedside. No acute distress, no dizziness overnight She was saturating 94% on room air with heart rate in the 100s. Does complain of pain on the right side which is better controlled with pain medication Denied any nausea or vomiting No hematuria, no hematochezia Review of Systems 2 Review of Systems: All systems reviewed & are unremarkable except as noted in Subjective Physical Exam 2 Physical Exam: Constitutional: No acute distress HEENT: EOMI, PERRLA Respiratory system: Decreased air bilaterally, no wheeze, no rhonchi, positive crackles bilaterally CVS: S1-S2 positive, no murmurs or gallops Abdomen: Soft, nontender, nondistended, positive bowel sounds x4 Extremities: +2 pulses bilaterally radialis/ dorsalis pedis, no cyanosis, no edema Neuro: Awake alert oriented x3 Psych: Normal mood and affect G/U: No [place] Skin: no rashes, warm and dry Lymphatic: no cervical or axillary lymphadenopathy Results & Data Results & Data Vital Signs (Past 12 Hours) Vital Signs Temp Pulse Resp BP Pulse Ox O2 Del Method 12/06/24 07:35 36.8 C 89 18 132/85 90 Room Air 12/06/24 03:28 36.6 C 86 16 131/87 90 Room Air 12/05/24 23:14 36.8 C 101 H 16 130/86 90 Room Air Laboratory Results 12/05/24 14:02 12/05/24 14:02 PG Care Time/CCT Total # of Minutes Spent Total Time Spent with Patient: Total time spent is greater than 50% in coordination of care (as documented) at patient's floor/unit and/or counseling patient: Coding Level of Care Code 52549 SUB INP/OBS CARE 2/35MIN Diagnoses Acute deep vein thrombosis of left popliteal vein I82.432 Pulmonary embolism I26.09 Acute cor pulmonale presence: with acute cor pulmonale Chronicity: acute Pulmonary embolism type: unspecified Obesity E66.9
[2024-12-06] MEDS: PANTOprazole 40 MG TAB PO SCH (09:05)
[2024-12-06] MEDS: APIXABAN 5 MG TABLET PO SCH (14:21)
--- NOTE | 2024-12-06 19:01 | Hospitalist Progress Note ---
Date of Service December 06, 2024 Assessment & Plan (1) Pulmonary embolism: Plan: See Plan below for details on Assessment & Plan for acute right PE. (2) Acute deep vein thrombosis of left popliteal vein: Plan: ee Plan below for details on Assessment & Plan for acute left popliteal DVT. (3) Leukocytosis: Plan: ee Plan below for details on Assessment & Plan for acute leukocytosis. (4) Alkaline phosphatase elevation: Plan: ee Plan below for details on Assessment & Plan for nominal ALK PHOS elevation. Plan 49 years old female with PMH of FULL CODE @ home, obesity with BMI 39.2 (height 157.5 cm/ weight 97.1 kg), bilateral pulsatile tinnitus, GERD on omeprazole 20mg PO qam, 7 x 8 x 5 mm mixed cystic and solid nodule of mid-pole, stable in size, and a few additional subcentimeter mixed cystic and solid nodules in the right thyroid lobe also appear unchanged compared to 09/21/2023 thyroid U/S (as reported on 10/03/2024 thyroid U/S), and RLE DVT, no PE (2002) on coumadin for 6 months, and most likely provoked by traumatic R femoral fracture (2002) sustained after 1,000 pounds of drywall (10 sheets of drywall propped up on patient's home porch) fell onto patient's RLE and caused an acute R femoral spiral fracture that was repaired @ [facility], who underwent elective left total knee replacement (11/21/2024, 1:24pm, [facility] Orthopedic Surgeon Dr. Sulaiman Urena), then placed on ASA 81mg PO bid for DVT prophylaxis, who reports: "I woke up this morning (12/05/2024, 1:00am) with this sharp pain in the right side of my upper back; it got worse when I breathed in, but not out. I did not fall down or hit anything in my right back. I called my PCP Dr. Meka Hernandez and she sent me to the ER to get a CAT scan of my chest. The ER doc said that I have a blood clot in my right lung." Patient was subsequently placed in OBSERVATION on the hospitalist service @ [facility] on 12/05/2024 with the following diagnoses: 1. Acute PE in the distal right pulmonary artery which extend into the lobar and segmental branches of the right lung. 2. Acute left popliteal DVT. 3. Acute leukocytosis with WBC 11.88, N83 L9 M8 (12/05/2024, 2:02pm). 4. Nominal elevation in ALK PHOS 122 U/L (12/05/2024, 2:02pm). To address #1 and #2, patient was started on heparin bolus of 5,000 units IV x 1 dose (12/05/2024, 4:26pm), followed by heparin infusion @ 1,250 units/hr (12/05/2024, 4:27pm) in [facility] ER bed #B12B. Patient will then transition to eliquis 10mg PO bid x 7 days (starting on 12/06/2024 am) at [facility] Telemetry floor, followed by eliquis 5mg PO bid x 83 days (starting on 12/13/2024 am) at home. To this end, I have solicited formal Case Management Service evaluation in the 12/06/2024 am, to determine if patient will have any co-pay for eliquis 10mg PO bid x 7 days (starting on 12/06/2024 am) at [facility] Telemetry floor, followed by eliquis 5mg PO bid x 83 days (starting on 12/13/2024 am) at home. In addition, I solicited formal Pulmonology Service evaluation with Dr. Chiquita Ortega to optimize management of acute PE and acute left popliteal DVT, both of which appear to have been provoked by patient's recent elective left total knee replacement (11/21/2024, 1:24pm, [facility] Orthopedic Surgeon Dr. Sulaiman Urena). Moreover, patient's past medical history of RLE DVT, no PE (2002) on coumadin for 6 months, was most likely provoked by traumatic R femoral fracture (2002) sustained after 1,000 pounds of drywall (10 sheets of drywall propped up on patient's home porch) fell onto patient's RLE and caused an acute R femoral spiral fracture that was repaired @ [facility]. 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 To address #3, patient is being observed without further evaluation as acute leukocytosis is most probably due to non-specific lymphocyte demargination caused by acute right PE and acute left popliteal DVT. To address #4, patient is being observed without further evaluation as nominal elevation in ALK PHOS is most probably due to ALK PHOS release from pulmonary infarction, and which may actually present in this patient as noted by "5.2 x 2.3 cm right upper lobe subpleural opacity suggestive of a pulmonary infarct" (as reported on 12/05/2024, 10:40am CTA chest). Admission and Anticipated Discharge Date Admission Date: December 05, 2024 Subjective Patient seen and examined at bedside. No acute distress, no dizziness overnight She was saturating 94% on room air with heart rate in the 100s. Does complain of pain on the right side which is better controlled with pain medication Denied any nausea or vomiting No hematuria, no hematochezia Physical Exam Physical Exam: Constitutional: No acute distress HE ENT: EOMI, PERRLA Respiratory system : Decreased air bi laterally, no whee ze, no rhonchi, po sitive crackles bi laterally CVS: S1- S2 positive, no mu rmurs or gallops A bdomen: Soft, nont german, nondistende d, positive bowel sounds x4 Extremit ies: +2 pulses neel aterally radialis/ dorsalis pedis, n o cyanosis, no oneyda ma Neuro: Awake al ert oriented x3 Ps ych: Normal mood a nd affect G/U: No [place] Skin: no rashes, warm an d dry Lymphatic: no cervical or axi llary lymphadenopa thy Results & Data Results & Data Vital Signs (Past 12 Hours) Vital Signs Temp Pulse Pulse Resp BP Pulse Ox O2 Del Method 12/06/24 16:44 37.0 C 114 H 20 133/84 91 Room Air 12/06/24 11:02 36.8 C 104 H 18 145/88 H 93 Room Air 12/06/24 07:35 36.8 C 89 18 132/85 90 Room Air PG Care Time/CCT Total # of Minutes Spent Total Time Spent with Patient: Total time spent is greater than 50% in coordination of care (as documented) at patient's floor/unit and/or counseling patient: Coding Level of Care Code 68108 SUB INP/OBS CARE 3/50MIN Diagnoses Pulmonary embolism I26.09 Acute cor pulmonale presence: with acute cor pulmonale Chronicity: acute Pulmonary embolism type: unspecified Acute deep vein thrombosis of left popliteal vein I82.432 Leukocytosis D72.829 Alkaline phosphatase elevation R74.8 Time Spent (min) 50 (1) Pulmonary embolism Acute cor pulmonale presence: with acute cor pulmonale Chronicity: acute Pulmonary embolism type: unspecified Qualified Code(s): I26.09 - Other pulmonary embolism with acute cor pulmonale
[2024-12-07 06:35] LABS: Basophils # (auto) 0.04 K/uL (0.00-0.20); Basophils % (auto) 0.3 %; Eosinophils # (auto) 0.09 K/uL (0.00-0.50); Eosinophils % (auto) 0.7 %; Hematocrit (blood only) 37.4 % (37.0-47.0); Hemoglobin 12.2 g/dl (12.0-16.0); Immature Granulocytes # (auto) 0.08 K/uL (0.01-0.20); Immature Granulocytes % (auto) 0.6 %; Lymphocytes # (auto) 1.52 K/uL (1.20-3.40); Lymphocytes % (auto) 11.2 %; Mean Corpuscular Hemoglobin 30.3 pg (25.0-34.0); Mean Corpuscular Hgb Conc 32.6 g/dL (32.0-36.0); Mean Platelet Volume 9.6 fL (9.4-12.4); Monocytes # (auto) 0.95 K/uL (0.11-0.59); Neutrophils # (auto) 10.86 K/uL (1.40-6.50); Neutrophils % (auto) 80.2 %; Platelet Count 250 K/uL (130-400); RDW Coefficient of Variation 12.5 % (11.5-14.5); RDW Standard Deviation 42.7 fL (36.4-46.3); Red Blood Count 4.02 M/uL (4.20-5.40); White Blood Count 13.54 K/ul (4.8-10.8)
[2024-12-07 07:35] VITALS: TEMP 98.6
--- NOTE | 2024-12-07 08:29 | Pulmonology Progress Note ---
Date of Service December 07, 2024 Assessment & Plan (1) Acute deep vein thrombosis of left popliteal vein: (2) Pulmonary embolism: Acute cor pulmonale presence: with acute cor pulmonale C hronicity: acute Pulmonary embolism type: unspecified Qualified Code(s): I 26.09 - Other pulmonary embolism with acute cor pulmonale (3) Obesity: Plan CTA chest 12/05/2024 personally reviewed: Patchy groundglass opacity appreciated on the periphery in the right upper lobe likely infarct Acute pulmonary emboli in the right pulmonary artery Dependent atelectasis bilateral lower lobes Patchy scarring appreciated in the right lower lobe next to spinal callus --Acute pulmonary emboli with probable wedge-shaped infarct BNP 14, troponin Negative sPESI 0 No indication for EKOS or systemic thrombolytic Would consider this to be a provoked event given left knee replacement 2 weeks ago Patient did have history of DVT in the right lower extremity which was also provoked from surgery at that time. Given that the patient has second episode of DVT and now a PE, BMI of 38.7 and sedentary work lifestyle; I would recommend therapeutic anticoagulation for 3-6 months followed by low-dose anticoagulation lifelong It is reasonable to do hypercoagulable workup as well -- Acute DVT 12/05/2024 left popliteal vein History of DVT back in 2002 s/p femoral fracture --Probable ROBINA Recommend outpatient polysomnography Plan: On Eliquis Given that the patient has second episode of DVT and now a PE, BMI of 38.7 and sedentary work lifestyle; I would recommend therapeutic anticoagulation for 3-6 months followed by low-dose anticoagulation lifelong Continue with incentive spirometry with pain management Check for oxygen requirement with exertion prior to discharge Case was discussed with RN at bedside No further recommendation from pulmonary perspective, will sign off Please call directly with any questions Please note the above document was generated using voice recognition software. It may contain grammatical, syntax or spelling errors.Any formal questions or concerns about the content, text or information contained within the body of this dictation should be directly addressed to the provider for clarification. Admission and Anticipated Discharge Date Admission Date: December 05, 2024 Subjective Patient seen and examined at bedside. No acute distress, no emesis overnight She just came back from the washroom. Saturation was 92-93% but heart rate was in the 120s Stated that the chest pain/back pain has improved. She is able to take deeper breaths Denies any hemoptysis Fair appetite No nausea or vomiting Has been using incentive spirometry Review of Systems 2 Review of Systems: All systems reviewed & are unremarkable except as noted in Subjective Physical Exam 2 Physical Exam: Constitutional: No acute distress HEENT: EOMI, PERRLA Respiratory system: Decreased air on the right lower side, no wheeze, no rhonchi, positive crackles bilaterally CVS: S1-S2 positive, no murmurs or gallops Abdomen: Soft, nontender, nondistended, positive bowel sounds x4 Extremities: +2 pulses bilaterally radialis/ dorsalis pedis, no cyanosis, no edema Neuro: Awake alert oriented x3 Psych: Normal mood and affect G/U: No [place] Skin: no rashes, warm and dry Lymphatic: no cervical or axillary lymphadenopathy Results & Data Results & Data Vital Signs (Past 12 Hours) Vital Signs Temp Pulse Pulse Resp BP Pulse Ox O2 Del Method 12/07/24 07:34 37.0 C 100 H 18 134/84 91 Room Air 12/07/24 07:18 103 H 12/07/24 03:49 36.9 C 97 H 20 118/78 92 Room Air 12/06/24 23:50 36.8 C 113 H 18 138/84 92 Room Air 12/06/24 21:46 97 H 12/06/24 20:39 36.7 C 108 H 18 136/84 94 Room Air Laboratory Results 12/07/24 05:26 12/05/24 14:02 PG Care Time/CCT Total # of Minutes Spent Total Time Spent with Patient: Total time spent is greater than 50% in coordination of care (as documented) at patient's floor/unit and/or counseling patient: Coding Level of Care Code 84293 SUB INP/OBS CARE 2/35MIN Diagnoses Acute deep vein thrombosis of left popliteal vein I82.432 Pulmonary embolism I26.09 Acute cor pulmonale presence: with acute cor pulmonale Chronicity: acute Pulmonary embolism type: unspecified Obesity E66.9
[2024-12-07 15:16] VITALS: BP 133/84; RESP 18; O2SAT 91
[2024-12-07 15:43] VITALS: PULSE 105
--- NOTE | 2024-12-07 17:37 | Discharge Summary ---
Date of Service December 07, 2024 Admission HPI Per Admitting Provider 49 years old female with PMH of FULL CODE @ home, obesity with BMI 39.2 (height 157.5 cm/ weight 97.1 kg), bilateral pulsatile tinnitus, GERD on omeprazole 20mg PO qam, 7 x 8 x 5 mm mixed cystic and solid nodule of mid-pole, stable in size, and a few additional subcentimeter mixed cystic and solid nodules in the right thyroid lobe also appear unchanged compared to 09/21/2023 thyroid U/S (as reported on 10/03/2024 thyroid U/S), and RLE DVT, no PE (2002) on coumadin for 6 months, and most likely provoked by traumatic R femoral fracture (2002) sustained after 1,000 pounds of drywall (10 sheets of drywall propped up on patient's home porch) fell onto patient's RLE and caused an acute R femoral spiral fracture that was repaired @ [facility], who underwent elective left total knee replacement (11/21/2024, 1:24pm, [facility] Orthopedic Surgeon Dr. Sulaiman Urena), then placed on ASA 81mg PO bid for DVT prophylaxis, who reports: "I woke up this morning (12/05/2024, 1:00am) with this sharp pain in the right side of my upper back; it got worse when I breathed in, but not out. I did not fall down or hit anything in my right back. I called my PCP Dr. Meka Hernandez and she sent me to the ER to get a CAT scan of my chest. The ER doc said that I have a blood clot in my right lung." Patient denies antecedent/coincident fevers, chills, diaphoresis, cough, wheeze, sore throat, hemoptysis, palpitations, nausea, vomiting, diarrhea, abdominal pain, pelvic pain, hematemesis, hematochezia, melena, hematuria, dysuria, frequency, urgency, headaches, dizziness, lightheadedness, visual changes, hearing changes, weakness, falls, syncope, trauma, travel history, sick contacts, or food/drug ingestions novel or new. All other review of systems are reported as negative/normal by the patient on observation date 12/05/2024. In [facility] ER bed #B12B, patient was afebrile @ 36.8 degrees Celsius, HR 123, RR 20, O2 sat 96% on room air, and BP 131/90 (, 9:27am). Exam was noted for a clear and non-tender chest and back with no obvious ecchymosis or hematoma. Labs in [facility] ER bed #B12B included: WBC 11.88, N83 L9 M8, Hb 13.3, MCV 90.6, JAIL 33.6, platelet 255 (12/05/2024, 2:02pm). INR 1.0 (12/05/2024, 2:02pm). Protein C/S, antithrombin III, Factor V Leiden mutation, prothrombin, homocysteine (12/05/2024, 2:02pm). Na 135, K 4.2, CO2 26, BUN 16, creatinine 0.72, glucose 107, Ca 9.0, AST 26, ALT 36, ALK PHOS 122, TBili 0.8 (12/05/2024, 2:02pm). Troponin-I #1 < 2.3 pg/mL (12/05/2024, 2:02pm). BNP 14 pg/mL (12/05/2024, 2:02pm). Additional testing in [facility] ER bed #B12B included: CTA chest (12/05/2024, 10:40am): 1. Extensive right-sided pulmonary emboli. Specifically, there are near occlusive emboli within the distal right pulmonary artery which extend into the lobar and segmental branches of the right lung. 5.2 x 2.3 cm right upper lobe subpleural opacity suggestive of a pulmonary infarct. No CT evidence for right heart strain. Findings will be called/faxed to ordering provider at time of dictation. 2. Subpleural opacities within the superior segment of the right lower lobe which favor atelectasis or scarring. An additional smaller pulmonary infarct could appear similar but is considered less likely. A chest CT in 3 months to ensure stability/resolution is recommended to exclude the less likely possibility of a pulmonary lesion. 3. Left lung opacities suggestive of atelectasis. Thoracic spine x-ray (12/05/2024, 12:16pm): 1. No fracture seen. Bilateral lower extremity venous doppler (12/05/2024, 2:05pm): 1. Positive study for deep venous thrombus within the left popliteal vein. 2. No additional sites of deep venous thrombus within the lower extremities. Patient was subsequently placed in OBSERVATION on the hospitalist service @ [facility] on 12/05/2024 with the following diagnoses: 1. Acute PE in the distal right pulmonary artery which extend into the lobar and segmental branches of the right lung. 2. Acute left popliteal DVT. 3. Acute leukocytosis with WBC 11.88, N83 L9 M8 (12/05/2024, 2:02pm). 4. Nominal elevation in ALK PHOS 122 U/L (12/05/2024, 2:02pm). To address #1 and #2, patient was started on heparin bolus of 5,000 units IV x 1 dose (12/05/2024, 4:26pm), followed by heparin infusion @ 1,250 units/hr (12/05/2024, 4:27pm) in [facility] ER bed #B12B. Patient will then transition to eliquis 10mg PO bid x 7 days (starting on 12/06/2024 am) at [facility] Telemetry floor, followed by eliquis 5mg PO bid x 83 days (starting on 12/13/2024 am) at home. To this end, I have solicited formal Case Management Service evaluation in the 12/06/2024 am, to determine if patient will have any co-pay for eliquis 10mg PO bid x 7 days (starting on 12/06/2024 am) at [facility] Telemetry floor, followed by eliquis 5mg PO bid x 83 days (starting on 12/13/2024 am) at home. In addition, I solicited formal Pulmonology Service evaluation with Dr. Chiquita Ortega to optimize management of acute PE and acute left popliteal DVT, both of which nathan ear to have been provoked by patient's recent elective left total knee replacement (11/21/2024, 1:24pm, [facility] Orthopedic Surgeon Dr. Sulaiman Urena). Moreover, patient's past medical history of RLE DVT, no PE (2002) on coumadin for 6 months, was most likely provoked by traumatic R femoral fracture (2002) sustained after 1,000 pounds of drywall (10 sheets of drywall propped up on patient's home porch) fell onto patient's RLE and caused an acute R femoral spiral fracture that was repaired @ [facility]. 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 To address #3, patient is being observed without further evaluation as acute leukocytosis is most probably due to non-specific lymphocyte demargination caused by acute right PE and acute left popliteal DVT. To address #4, patient is being observed without further evaluation as nominal elevation in ALK PHOS is most probably due to ALK PHOS release from pulmonary infarction, and which may actually present in this patient as noted by "5.2 x 2.3 cm right upper lobe subpleural opacity suggestive of a pulmonary infarct" (as reported on 12/05/2024, 10:40am CTA chest). Admission Exam (Per Admitting) Constitutional Constitutional: No acute distress HEENT: EOMI, PERRLA Respiratory system: Decreased air on the right lower side, no wheeze, no rhonchi, positive crackles bilaterally CVS: S1-S2 positive, no murmurs or gallops Abdomen: Soft, nontender, nondistended, positive bowel sounds x4 Extremities: +2 pulses bilaterally radialis/ dorsalis pedis, no cyanosis, no edema Neuro: Awake alert oriented x3 Psych: Normal mood and affect G/U: No [place] Skin: no rashes, warm and dry Lymphatic: no cervical or axillary lymphadenopathy Discharge Data Consultations 12/05/24 16:00 ED Decision to Admit Stat 12/05/24 16:12 Consult Pulmonology Stat Hospital Course (1) Pulmonary embolism: See Plan below for details on Assessment & Plan for acute right PE. (2) Acute deep vein thrombosis of left popliteal vein: ee Plan below for details on Assessment & Plan for acute left popliteal DVT. (3) Leukocytosis: ee Plan below for details on Assessment & Plan for acute leukocytosis. (4) Alkaline phosphatase elevation: ee Plan below for details on Assessment & Plan for nominal ALK PHOS elevation. Plan 49 years old female with PMH of FULL CODE @ home, obesity with BMI 39.2 (height 157.5 cm/ weight 97.1 kg), bilateral pulsatile tinnitus, GERD on omeprazole 20mg PO qam, 7 x 8 x 5 mm mixed cystic and solid nodule of mid-pole, stable in size, and a few additional subcentimeter mixed cystic and solid nodules in the right thyroid lobe also appear unchanged compared to 09/21/2023 thyroid U/S (as reported on 10/03/2024 thyroid U/S), and RLE DVT, no PE (2002) on coumadin for 6 months, and most likely provoked by traumatic R femoral fracture (2002) sustained after 1,000 pounds of drywall (10 sheets of drywall propped up on patient's home porch) fell onto patient's RLE and caused an acute R femoral spiral fracture that was repaired @ [facility], who underwent elective left total knee replacement (11/21/2024, 1:24pm, [facility] Orthopedic Surgeon Dr. Sulaiman Urena), then placed on ASA 81mg PO bid for DVT prophylaxis, who reports: "I woke up this morning (12/05/2024, 1:00am) with this sharp pain in the right side of my upper back; it got worse when I breathed in, but not out. I did not fall down or hit anything in my right back. I called my PCP Dr. Meka Hernandez and she sent me to the ER to get a CAT scan of my chest. The ER doc said that I have a blood clot in my right lung." Patient was subsequently placed in OBSERVATION on the hospitalist service @ [facility] on 12/05/2024 with the following diagnoses: 1. Acute PE in the distal right pulmonary artery which extend into the lobar and segmental branches of the right lung. 2. Acute left popliteal DVT. 3. Acute leukocytosis with WBC 11.88, N83 L9 M8 (12/05/2024, 2:02pm). 4. Nominal elevation in ALK PHOS 122 U/L (12/05/2024, 2:02pm). To address #1 and #2, patient was started on heparin bolus of 5,000 units IV x 1 dose (12/05/2024, 4:26pm), followed by heparin infusion @ 1,250 units/hr (12/05/2024, 4:27pm) in [facility] ER bed #B12B. Patient will then transition to eliquis 10mg PO bid x 7 days (starting on 12/06/2024 am) at [facility] Telemetry floor, followed by eliquis 5mg PO bid x 83 days (starting on 12/13/2024 am) at home. To this end, I have solicited formal Case Management Service evaluation in the 12/06/2024 am, to determine if patient will have any co-pay for eliquis 10mg PO bid x 7 days (starting on 12/06/2024 am) at [facility] Telemetry floor, followed by eliquis 5mg PO bid x 83 days (starting on 12/13/2024 am) at home. In addition, I solicited formal Pulmonology Service evaluation with Dr. Chiquita Ortega to optimize management of acute PE and acute left popliteal DVT, both of which appear to have been provoked by patient's recent elective left total knee replacement (11/21/2024, 1:24pm, [facility] Orthopedic Surgeon Dr. Sulaiman Urena). Moreover, patient's past medical history of RLE DVT, no PE (2002) on coumadin for 6 months, was most likely provoked by traumatic R femoral fracture (2002) sustained after 1,000 pounds of drywall (10 sheets of drywall propped up on patient's home porch) fell onto patient's RLE and caused an acute R femoral spiral fracture that was repaired @ [facility]. 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 To address #3, patient is being observed without further evaluation as acute leukocytosis is most probably due to non-specific lymphocyte demargination caused by acute right PE and acute left popliteal DVT. To address #4, patient is being observed without further evaluation as nominal elevation in ALK PHOS is most probably due to ALK PHOS release from pulmonary infarction, and which may actually present in this patient as noted by "5.2 x 2.3 cm right upper lobe subpleural opacity suggestive of a pulmonary infarct" (as reported on 12/05/2024, 10:40am CTA chest). 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 twice daily Coding Level of Care Code 31542 INP/OBS DISCH >30 MIN Diagnoses Pulmonary embolism I26.09 Acute cor pulmonale presence: with acute cor pulmonale Chronicity: acute Pulmonary embolism type: unspecified Acute deep vein thrombosis of left popliteal vein I82.432 Leukocytosis D72.829 Alkaline phosphatase elevation R74.8
--- NOTE | 2024-12-08 09:38 | Electrocardiogram Report ---
Test Reason : Blood Pressure : */* mmHG Vent. Rate : 99 BPM Atrial Rate : 99 BPM P-R Int : 148 ms QRS Dur : 62 ms QT Int : 346 ms P-R-T Axes : 35 6 3 degrees QTcB Int : 444 ms Poor data quality, interpretation may be adversely affected Normal sinus rhythm Minimal voltage criteria for LVH, may be normal variant ( R in aVL ) Possible Anterior infarct , age undetermined , may be lead placement Abnormal ECG When compared with ECG of 23-Oct-2024 15:58, Borderline criteria for Anterior infarct are now Present Confirmed by Emiliano Early ([id number]) on 12/08/2024 9:38:11 AM Referred By: Jenny Villalobos Confirmed By: Emiliano Early
== END 2024-12-07 15:45 | disposition home or self-care (01) ==
LOC: ED 13:43 → 2N 13:43 → SUATTDRO 16:08 → 2N 17:53